=== PATIENT | female | born 1960 | race Caucasian/White ===

== ENCOUNTER 2020-04-11 08:39 | Outpatient (REF) | payer OTHER, SELFPAY ==
--- NOTE | 2020-04-11 08:45 | MM_ITS ---
EXAMINATION: MM SCREENING DIGITAL BREAST TOMOSYNTHESIS, BILATERAL CLINICAL INFORMATION: Screening. Asymptomatic. Family history of breast cancer (sister diagnosed at age of 51) The lifetime risk of breast cancer based on the Tyrer-Cuzick Model is 16.0%. COMPARISON: Mammography: 03/17/2019, 02/24/2018, 02/18/2017 TECHNIQUE: Digital breast tomosynthesis is performed in both the craniocaudal and mediolateral oblique views along with computer-aided detection (CAD). Synthesized 2D images are generated from the tomosynthesis. FINDINGS: The breasts are extremely dense, which lowers the sensitivity of mammography (ACR BI-RADS breast composition Category d). Right breast: A 1.5 cm oval well-circumscribed isodense mass in the lower inner quadrant, 3 to 5 cm from nipple is stable since previous study of 2017. No suspicious calcifications are noted. A small partially seen asymmetry along the chest wall in the medial posterior right breast seen only on the craniocaudal view most probably represents a sternalis muscle however further evaluation is recommended at this time. Left breast: No suspicious masses, calcifications, architectural distortion or other abnormalities are seen. No significant interval change is noted compared to last study. MM/MM tomosynthesis screening BI IMPRESSION: 1. Small asymmetry along the chest wall in the posterior medial right breast. 2. No mammographic evidence of malignancy in the left breast. ASSESSMENT: BI-RADS 0: Incomplete - Need Additional Imaging Evaluation RECOMMENDATION: 1. Additional views of the right breast. Recommend right exaggerated craniocaudal medial view utilizing tomosynthesis technique. Additional mammographic views may be acquired as warranted. 2. Targeted ultrasound if warranted after review of the additional views. 3. Radiology department staff will contact the patient for additional imaging. This patient's information was entered into a reminder system with a target due date for their next mammogram.
== END 2020-04-11 08:40 | disposition home or self-care (01) ==
LOC: HO.MAMMO 08:39
PROVIDERS: PCP Internal Medicine; Visit Provider Internal Medicine
DX: Z12.31 Encounter for screening mammogram for malignant neoplasm of breast (principal)
CPT/HCPCS: 77063; 77067

== ENCOUNTER 2020-04-22 14:54 | Outpatient (REF) | payer OTHER, SELFPAY ==
--- NOTE | 2020-04-22 | MM_ITS ---
EXAMINATION: MM DIAGNOSTIC DIGITAL BREAST TOMOSYNTHESIS, RIGHT CLINICAL INFORMATION: Density deep medial aspect of the right breast on craniocaudal view. The lifetime risk of breast cancer based on the Tyrer-Cuzick Model is 16.0%. COMPARISON: Mammography: 04/11/2020 and studies dating back to 02/18/2017. TECHNIQUE: Digital breast tomosynthesis is performed in spot compression exaggerated craniocaudal views along with computer-aided detection (CAD). Synthesized 2D images are generated from the tomosynthesis. FINDINGS: The breasts are extremely dense, which lowers the sensitivity of mammography (ACR BI-RADS breast composition Category d). There is no persistence of the density adjacent to the chest wall medial craniocaudal view which appears to have been related to sternalis muscle. Results are provided to the patient at time of visit by the technologist. MM/MM tomosynthesis diagnostic RT IMPRESSION: No specific mammographic evidence to suggest malignancy. ASSESSMENT: BI-RADS 1: Negative. RECOMMENDATION: Routine annual mammography screening due in 12 months. This patient's information was entered into a reminder system with a target due date for their next mammogram.
== END 2020-04-22 14:55 | disposition home or self-care (01) ==
LOC: HO.MAMMO 14:54
PROVIDERS: PCP Internal Medicine; Visit Provider Internal Medicine
DX: R92.8 Other abnormal and inconclusive findings on diagnostic imaging of breast (principal)
CPT/HCPCS: 77061; 77065

== ENCOUNTER 2020-05-31 12:50 | Outpatient (REF) | payer OTHER, SELFPAY | END 2020-05-31 12:51 | disposition home or self-care (01) | LOC: HO.WFDLDS 12:50 | PROVIDERS: Visit Provider Internal Medicine | DX: Z20.828 Contact with and (suspected) exposure to other viral communicable diseases (principal) | CPT/HCPCS: C9803; U0003 ==

== ENCOUNTER 2021-05-09 08:01 | Outpatient (REF) | payer OTHER, SELFPAY ==
--- NOTE | ~2021-05-09 | MM_ITS ---
EXAMINATION: MM SCREENING DIGITAL BREAST TOMOSYNTHESIS, BILATERAL CLINICAL INFORMATION: Screening. Asymptomatic. The lifetime risk of breast cancer based on the Tyrer-Cuzick Model is 15.9%. COMPARISON: Mammography: April 22, 2020 and studies dating back to February 18, 2017 TECHNIQUE: Digital breast tomosynthesis is performed in both the craniocaudal and mediolateral oblique views along with computer-aided detection (CAD). Synthesized 2D images are generated from the tomosynthesis. FINDINGS: The breasts are heterogeneously dense, which may obscure small masses (ACR BI-RADS breast composition Category c). There are no significant masses, abnormal calcifications, or other abnormalities. Stable circumscribed density about the deep inferior medial aspect of the right breast again seen. MM/MM tomosynthesis screening BI IMPRESSION: There are no significant changes from prior study. ASSESSMENT: BI-RADS 2: Benign RECOMMENDATION: Routine annual mammography screening. This patient's information was entered into a reminder system with a target due date for their next mammogram.
== END 2021-05-09 08:02 | disposition home or self-care (01) ==
LOC: HO.MAMMO 08:01
PROVIDERS: PCP Internal Medicine; Visit Provider Internal Medicine
DX: Z12.31 Encounter for screening mammogram for malignant neoplasm of breast (principal)
CPT/HCPCS: 77063; 77067

== ENCOUNTER 2022-05-16 09:58 | Outpatient (REF) | payer OTHER, SELFPAY ==
--- NOTE | ~2022-05-16 | MM_ITS ---
EXAMINATION: MM SCREENING DIGITAL BREAST TOMOSYNTHESIS, BILATERAL CLINICAL INFORMATION: Screening. Asymptomatic. Family history breast cancer, sister. The lifetime risk of breast cancer based on the Tyrer-Cuzick Model is 15%. COMPARISON: Mammography: 05/09/2021, 04/22/2020, 04/11/2020, 03/17/2019 TECHNIQUE: Digital breast tomosynthesis is performed in both the craniocaudal and mediolateral oblique views along with computer-aided detection (CAD). Synthesized 2D images are generated from the tomosynthesis. FINDINGS: The breasts are heterogeneously dense, which may obscure small masses (ACR BI-RADS breast composition Category c). There is a stable 1.5 cm circumscribed equal attenuation mass with smooth margins posterior central 4:00 position right breast similar to prior exams. Neither breast shows interval mass or developing density or architectural abnormality. No abnormal calcifications. The axilla and skin contours are unremarkable. No significant changes. MM/MM tomosynthesis screening BI IMPRESSION: No significant changes from prior exams. ASSESSMENT: BI-RADS 2: Benign RECOMMENDATION: Routine annual mammography screening. This patient's information was entered into a reminder system with a target due date for their next mammogram.
== END 2022-05-16 09:59 | disposition home or self-care (01) ==
LOC: HO.MAMMO 09:58
PROVIDERS: PCP Internal Medicine; Visit Provider Internal Medicine
DX: Z12.31 Encounter for screening mammogram for malignant neoplasm of breast (principal)
CPT/HCPCS: 77063; 77067

== ENCOUNTER 2023-05-22 09:44 | Outpatient (REF) | payer OTHER, SELFPAY ==
--- NOTE | ~2023-05-22 | MM_ITS ---
EXAMINATION: MM SCREENING DIGITAL BREAST TOMOSYNTHESIS, BILATERAL CLINICAL INFORMATION: Screening. Asymptomatic. COMPARISON: Mammography: This study is compared with prior exams dating back to 2018. TECHNIQUE: Digital breast tomosynthesis is performed in both the craniocaudal and mediolateral oblique views along with computer-aided detection (CAD). Synthesized 2D images are generated from the tomosynthesis. FINDINGS: The breasts are heterogeneously dense, which may obscure small masses (ACR BI-RADS breast composition Category c). There are no significant masses, abnormal calcifications, or other abnormalities. There has been no interval change of a long-standing well-circumscribed, benign focal asymmetry of the lower inner quadrant of the right breast. MM/MM tomosynthesis screening BI IMPRESSION: No mammographic evidence of malignancy. ASSESSMENT: BI-RADS BI-RADS 2 - Benign Findings RECOMMENDATION: Routine annual mammography screening. 1 year F/U This examination should not preclude the clinical evaluation of a suspicious palpable abnormality. This patient's information was entered into a reminder system with a target due date for their next mammogram.
== END 2023-05-22 09:45 | disposition home or self-care (01) ==
LOC: HO.MAMMO 09:44
PROVIDERS: PCP Internal Medicine; Visit Provider Internal Medicine
DX: Z12.31 Encounter for screening mammogram for malignant neoplasm of breast (principal)
CPT/HCPCS: 77063; 77067

== ENCOUNTER → 2023-05-22 10:00 | Outpatient (BNV) | payer OTHER, SELFPAY | PROVIDERS: PCP Internal Medicine; Visit Provider Radiology Diagnostic Radiology | DX: Z12.31 Encounter for screening mammogram for malignant neoplasm of breast (principal) | CPT/HCPCS: 77063; 77067 ==

== ENCOUNTER 2025-03-11 10:20 | Outpatient (REF) | payer MEDICARE, SELFPAY ==
--- OUTSIDE RECORDS SUMMARY | 2022-01-19 20:00 | XMS_ITS | Continuity of Care Document ---
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 Name Role Phone Brigitte Abernathy Unavailable Unavailable Allergies, Adverse Reactions, Alerts Substance Reaction Status Criticality gluten Active No Information adhesive tape Active No Information Penicillins Active No Information Medications Medication Instructions Dosage Effective Dates (start - stop) Status Comments olmesartan 20 mg tablet take 0.5 tablet by oral route every day 10 MG - Active rosuvastatin 40 mg tablet take 1 tablet by oral route every day 40 MG - Active dose increase 03/09/21 Claritin 10 mg tablet take 1 tablet by oral route every day 10 MG - Active pilocarpine 5 mg tablet take 1 tablet by oral route 4 times every day 5 MG - Active folic acid 1 mg tablet take 1 tablet by oral route every day 1 MG - Active acamprosate 333 mg tablet,delayed release take 2 tablet by oral route 3 times every day 666 MG - Active Synthroid 150 mcg tablet take 1 tablet by oral route every Saturday through Saturday - Active buspirone 15 mg tablet take 1 tablet by oral route 3 times every day 15 MG - Active sertraline 100 mg tablet take 1.5 tablet by oral route every day - Active Synthroid 150 mcg tablet take 2 on Saturday and Saturday - Active Calcium 500 500 mg calcium (1,250 mg) tablet take 1 tablet by oral route every day 1 tablet - Active COQ-10 (unknown strength) Not Available - Active Vitamin B-12 100 mcg tablet take tablet by oral route every day tablet - Active Vitamin D3 50 mcg (2,000 unit) capsule take 1 capsule by oral route every day 1 capsule - Active propranolol 40 mg tablet take 1 tablet by oral route 2 times every day 40 MG - Active primidone 250 mg tablet take 50 mg 2 tablet by oral route every morning & 250 mg every bedtime 500 MG - Active meloxicam 15 mg tablet take 1 tablet by oral route every day 15 MG - Active hydroxychloroquine 200 mg tablet take 1 tablet by oral route 2 times every day 200 MG - Active Flovent Diskus 100 mcg/actuation powder for inhalation inhale 1 puff by inhalation route 2 times every day as needed - Active Multi-Day tablet take 1 tablet by oral route every day 1 tablet - Active Procedures Procedure Date NO SHOW ELECTROCARDIOGRAM, COMPLETE OFFICE/OUTPATIENT VISIT, EST OFFICE/OUTPATIENT VISIT, EST ELECTROCARDIOGRAM, COMPLETE OFFICE/OUTPATIENT VISIT, EST ELECTROCARDIOGRAM, COMPLETE OFFICE/OUTPATIENT VISIT, EST ELECTROCARDIOGRAM, COMPLETE OFFICE/OUTPATIENT VISIT, EST OFFICE/OUTPATIENT VISIT, EST ECHO 2D W/DOPPLER MPI SPECT MULTI STUDIES CARDIOVASCULAR STRESS TEST CARDIOVASCULAR STRESS TEST OFFICE CONSULTATION ELECTROCARDIOGRAM, COMPLETE CT CORONARY CALCIUM SCORE MPI SPECT MULTI STUDIES CARDIOVASCULAR STRESS TEST CARDIOVASCULAR STRESS TEST Advance Directives Directive Yes / No Effective Date File Name No Information Encounters Encounter Description Practice Location Reason(s) For Visit Diagnoses Date Provider Providers Copied on Encounter [facility] , [facility], [address] [place] [address], [id number] , tel:[phone] Main Office No Information 2 Mikhail Briggs. [address] [place] [address], [id number] , [place]. tel:[phone] [facility] , [facility], [address] [place] [address], [id number] , tel:[phone] CTS Office No Information 2 Christian Aparicio. [address] [place] [address], [id number] , . tel: [phone] OFFICE/OUTPAT IENT VISIT, [facility], [address] [place] [address], [id number] , tel: [phone] Main Office Follow up (chief complaint) Athscl heart disease of [place] coronary artery w/o ang pctrsEssential (primary) hypertensionMixed hyperlipidemia Feb-3 1 Mikhail Briggs. [address] [place] [address], [id number] , [place]. tel: [phone] Referring Provider: Markus Collado, [address] [place] [address], [id number] . tel:[phone] OFFICE/OUTPAT IENT VISIT, [facility], [address] [place] [address], [id number] , tel: [phone] Main Office Follow up (chief complaint) Atherosclerotic heart disease of [place] coronary artery without angina pectorisEssential (primary) hypertensionPure hypercholesterolemia , unspecified 1 Christian Aparicio. [address] [place] [address], [id number] , [place]. tel: [phone] Referring Provider: Brigitte Elizondo, [address] [place] [address], [id number] . tel:[phone] OFFICE/OUTPAT IENT VISIT, [facility], [address] [place] [address], [id number] , [place] tel: [phone] Main Office Follow up (chief complaint) Atherosclerotic heart disease of [place] coronary artery without angina pectorisEssential (primary) hypertensionPure hypercholesterolemia , unspecifiedDiscoid lupus erythematosusRheumat oid arthritis, unspecified 0 Mikhail Briggs. [address] [place] [address] [place], [place], [id number] , [place]. tel: [phone] Referring Provider: Markus Collado, [address] [place] [address], [address] [place] [address] . tel:[phone] OFFICE/OUTPAT IENT VISIT, [facility], [address] [place] [address], [address] [place] [address] , tel: [phone] Main Office Follow up (chief complaint) Athscl heart disease of [place] coronary artery w/o ang pctrsEssential (primary) hypertensionDiscoid lupus erythematosusRheumat oid arthritis, unspecified 7 Thel Markus. [address] [place] [address], [address] [place] [address] , [place]. tel: [phone] Referring Provider: Markus Collado, [address] [place] [address], [address] [place] [address] . tel:[phone] OFFICE/OUTPAT IENT VISIT, [facility], [address] [place] [address], [address] [place] [address] , tel: [phone] Main Office 1 Year (chief complaint) Athscl heart disease of [place] coronary artery w/o ang pctrs 6 Thel Markus. [address] [place] [address], [address] [place] [address] , . tel: [phone] Referring Provider: Markus Collado, [address] [place] [address], [address] [place] [address] . tel:[phone] [facility], [address] [place] [address], [address] [place] [address] , tel: [phone] Main Office No Information 6 Thel Markus. [address] [place] [address], [address] [place] [address] , [place]. tel: [phone] OFFICE/OUTPAT IENT VISIT, [facility], [address] [place] [address], [address] [place] [address] , tel: [phone] Main Office No Information 201 5 Thel Markus. [address] [place] [address], [address] [place] [address] , [place]. tel: [phone] Referring Provider: Markus Collado, [address] [place] [address], [id number] . tel:[phone] [facility] , [facility], [address] [place] [address], [id number] , tel: [phone] [facility] OP No Information 0- 5 Golden Kessler. [address] [place] [address], [id number] , [place]. tel: [phone] Referring Provider: Markus Collado, [address] [place] [address], [id number] . tel:[phone] [facility] , [facility], [address] [place] [address], [id number] , tel: [phone] [facility] OP No Information 0 5 Dionisio Navarrete. [address] [place] [address], [id number] , [place]. tel: [phone] Referring Provider: Markus Collado, [address] [place] [address], [id number] . tel:[phone] OFFICE CONSULTATION [facility] , [facility], [address] [place] [address], [id number] , tel: [phone] Main Office No Information 5 Christian Markus. [address] [place] [address], [id number] , [place]. tel: [phone] Referring Provider: Renato Gaspar, [address] [facility] [address], [place], [address]. tel:[phone] [facility] , [facility], [address] [place] [address], [id number] , [place] tel: [phone] [facility] OP No Information 5 5 Reg Mcintosh. [address] [place] [address], [id number] , [place]. tel: [phone] Referring Provider: Renato Gaspar, [address] [facility] [address], [place], [address]. tel:[phone] [facility], [address] [place] [address], [id number] , tel: [phone] [facility] OP No Information 1 Christian Solano. [address] [place] [address], [id number] , . tel: [phone] Referring Provider: Deb Maguire, [address] [place] [address], [address]. tel:[phone] Family History Family Member Type Diagnosis Age At Onset Father Problem (finding) raised blood lipids Father Problem (finding) Cardiovascular disease Payers Payer name Insurance type Covered alliance party ID Authoriza tion(s) No Information Social History Type Description Quantity Date Captured Comments Sex Female Smoking Status No Information Chief Complaint And Reason For Visit No Information Reason For Referral Reason For Referral No Information Plan Of Treatment Date Type Action Status Goal Lifestyle education regardin g diet completed Goal Lifestyle education regardin g diet completed Goal Lifestyle education regardin g diet completed Goal Lifestyle education regardin g diet completed Future Order: Lab Order Lipid Pa carmelo ([id number]), Scheduled for: , Scheduled for: Sent Future Order: Lab Order ALT (SGP T) ([id number]), Scheduled for: , Scheduled for: Sent Future Order: Lab Order AST (SGO T) ([id number]), Scheduled for: , Scheduled for: Sent Future Order: Lab Order BMP ([id number]), S ent on: Sent History Of Present Illness Encounter Date Complaint History Of Prese nt Illness Follow up Ms. Gregory is a 61 -year-old patient of Dr. Cooley with a history of CAD, HTN, and HLD presenting for a 6 month follow-up. Her lipitor was increased to 40mg nightly following her last labs and she indicates she is tolerating well. She has no complaints of chest pain, shortness of breath, orthopnea, palpitations, syncope or presyncope, stroke or strokelike symptoms. Follow up The patient is edwige ibrahim. She really has no complaints at all. She denies chest discomfort, orthopnea, PND, palpitations, stroke, strokelike symptoms, and claudication. She has had no problems with medications. Follow up Ms. Gregory is a 59 -year-old patient of Dr Cooley with a history of CAD, HTN, HLD, discoid lupus and RA presenting for an overdue 1 year follow-up. She reports her blood pressure has been more elevated in recent months which led her to resume Propranolol 40mg bid that was previously prescribed by another provider. She reports she does not routinely check at home, but at other appointments it has continued to be elevated. She has no complaints of chest pain, shortness of breath, orthopnea, syncope, stroke or stroke-like symptoms. She reports she had been having some palpitations, but since starting the Propranolol a few weeks ago these have subsided. Follow up The patient has been doing well. She has no cardiac complaints. She denies chest discomfort, orthopnea, PND, palpitations, stroke, strokelike symptoms, and claudication. She has had no problems with medications. 1 Year The patient is edwige prince. She has no complaints at all.She denies chest discomfort, orthopnea, PND, palpitations, stroke, strokelike symptoms, and claudication. She has had no problems with medications. Functional Status Date Functional Assessmen t No Information Instructions Date Instruction Joseph hernandez Lifestyle education regarding di et Related to Dietary counseling and surveillance Lifestyle education regarding di et Related to Dietary counseling and surveillance Lifestyle education regarding di et Related to Dietary counseling and surveillance Lifestyle education regarding di et Related to Dietary counseling and surveillance Assessments Type Assessment Date No Information Patient Care Teams Name Effective Dates (start - stop) Status Members No Information
[2025-03-11 14:41] LABS: Hematocrit 44.4 % (37.0-47.0); Hemoglobin 15.0 g/dl (12.0-16.0); Mean Corpuscular HGB Conc 33.8 g/dl (31.0-35.0); Mean Corpuscular Hemoglobin 30.0 pg (27.0-33.0); Mean Corpuscular Volume 88.8 fL (80.0-98.0); NRBC Abs Auto 0.000 X10*3/uL (0.0-0.012); NRBC Pct Auto 0.0 /100WBC (0.0-0.2); Platelet Count 233 X10*3/uL (160-400); Red Blood Count 5.00 X10*6/uL (4.20-5.50); White Blood Count 5.0 X10*3/uL (4.8-10.8)
[2025-03-11 15:20] LABS: Alanine Aminotransferase 15 U/L (0-31); Albumin Level 4.6 g/dL (3.5-5.0); Alkaline Phosphatase 50 U/L (39-117); Anion Gap 10 (12-20); Aspartate Amino Transferase 17 U/L (5-31); Blood Urea Nitrogen 13 mg/dL (9-16); Calcium 9.3 mg/dL (8.4-10.2); Carbon Dioxide 30 mmol/L (22-29); Chloride 105 mmol/L (96-108); Cholesterol 226 mg/dL (<200); Estimated Glomerular Filt Rate > 60; HDL Cholesterol 64 mg/dL (>40); Potassium 4.1 mmol/L (3.3-5.1); Sodium 141 mmol/L (135-145); Total Protein 7.3 g/dL (6.5-8.0); Triglycerides 81 mg/dL (<150)
== END 2025-03-11 10:21 | disposition home or self-care (01) ==
LOC: HO.WFDLDS 10:20
PROVIDERS: PCP Physician Assistant Medical; Visit Provider Physician Assistant Medical
DX: Z00.00 Encounter for general adult medical examination without abnormal findings (principal); E03.8 Other specified hypothyroidism; E78.5 Hyperlipidemia, unspecified; Z79.890 Hormone replacement therapy
CPT/HCPCS: 36415; 80053; 80061; 84443; 85027; 96127; 99387

== ENCOUNTER 2025-03-11 10:20 | Outpatient (AMB) | payer MEDICARE, SELFPAY ==
--- NOTE | 2025-03-11 10:32 | A.OFFPC_ITS ---
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 Allergies No Known Allergies (No Known Allergies*) Allergy (Unverified 03/11/25 10:37) Tobacco use date assessed: 03/11/25 Dental Screening Dental Screen Date: 03/11/25 Did you have a dental visit in the last 12 months?: Yes Did you have a dental problem in the last 6 months where you did not have access to dental care?: No Was dental information given to patient?: Patient has dentist HPI HPI Comments History of Present Illness Details This is a 65-year-old female with a past medical history of hypothyroidism presenting to establish care. She would like a physical done today. She transferred from Dr. Josue Serra. Hypothyroidism treated with levothyroxine 50 mcg and 75 mcg, alternates doses every other day. She would like to simplify this if possible. She is due for lab work. No fatigue, weight change or other symptoms of thyroid disease. Mammogram is due in May. Her sister has a history of breast cancer. She has a dermatology exam with [facility] on 04/16/2025. She has a annual women's health exam was Priscilla Hodge on 03/17/2025. She had a bone density test done recently and expects to review the results at that time. Eye and dental exams are up-to-date. She had a colonoscopy in 2023 and was told to repeat this in 10 years. Patient received her influenza vaccine, tetanus vaccine and COVID-19 vaccine on 03/01/2025. She is up-to-date with shingles and pneumonia vaccine. She notes an ongoing issue with or itching in the back of her scalp associated with redness and sometimes a bumpy rash. She has used cortisone and other creams [id number] with a good effect, but she does question if she is not using them long enough. She does plan to bring this up with her gyroscopic instrument tester. We reviewed trying cortisone twice daily for 7-10 days per episode and then avoiding use for 3-4 weeks. We reviewed side effects of steroids. ROS: Constitutional: No unexplained weight loss, fever, chills, fatigue or night sweats. Eyes: No vision changes, blurry vision, double vision, eye pain, eye redness, eye discharge. ENT: No hearing loss, sneezing, congestion, runny nose or sore throat. Respiratory: No shortness of breath, cough or sputum production. Cardiovascular: No chest pain, chest pressure or chest discomfort. No palpitations or pedal edema. Gastrointestinal: No anorexia, nausea, vomiting or diarrhea. No abdominal pain or blood in stool. Genitourinary: No dysuria, hematuria, urinary frequency. Neurologic: No headache, dizziness, syncope, unilateral weakness, ataxia, numbness or tingling in the extremities. Musculoskeletal: No muscle pain, back pain, joint pain or swelling. Hematologic/Lymphatics: No bleeding or bruising. No painful lymph nodes. Skin: See HPI Endocrine: No cold or heat intolerance. No polyuria or polydipsia. Psychiatric: No depression or anxiety. No SI/HI. Physical exam: Constitutional: Alert, in no distress. Head: Normocephalic. Eyes: Pupils are equal, round and reactive to light. Extraocular muscles intact. Ear, Nose and Throat: Canals clear. TMs normal. Normal nasal mucosa. No nasal discharge. No oral lesions. Neck: Supple, Full range of motion. No lymphadenopathy. No palpable thyroid masses. Respiratory: Clear to auscultation. Cardiovascular: S1 S2 regular. No murmurs. No carotid bruits. Gastrointestinal: Abdomen soft, non-tender, non-distended. Normal bowel sounds. No palpable masses. Neurologic: No focal neurological deficits. Symmetric patellar reflexes. Moves all extremities spontaneously. Sensation intact bilaterally. Skin: There is mild erythema and a single small papule on the hairline at the back of the head. Musculoskeletal: No gross deformities. Normal range of motion. Extremities: Warm and well perfused. No clubbing, cyanosis or edema. Intact peripheral pulses bilaterally. Psychiatric: Normal mood and affect [facility] Medical History (Updated 03/11/25 @ 11:26 by DILEEP Black) Hypothyroidism Routine physical examination Thyroid disorder Surgical History (Updated 03/11/25 @ 10:46 by Thais Becker CMA) History of colonoscopy Social History (Updated 03/11/25 @ 10:42 by Thais Becker CMA) Housing: House Alcohol intake: current Patient Tobacco Use Status: Never used Tobacco e-Cigarette/Vaping Use: Never Used Second Hand Smoke Exposure: No service: No Current occupational status: retired Current occupational exposures/hazards: No Cognitive needs: No Hearing needs: No Vision needs: No Questionnaire PHQ-9 Over the last 2 weeks, how often have you been bothered by any of the following problems? 1. Little interest or pleasure in doing things: not at all 2. Feeling down, depressed, or hopeless: not at all 3. Trouble falling or staying asleep, or sleeping too much: not at all 4. Feeling tired or having little energy: not at all 5. Poor appetite or overeating: not at all 6. Feeling bad about yourself - or that you are a failure or have let yourself or your family down: not at all 7. Trouble concentrating on things, such as reading the newspaper or watching television: not at all 8. Moving or speaking so slowly that other people could have noticed. Or the opposite - being so fidgety or restless that you have been moving around a lot more than usual: not at all 9. Thoughts that you would be better off or of hurting yourself in some way: not at all Total score: 0 Depression Screening Interpretation: Negative Depression Screening Done: Yes 40525 - PHQ-9 Billing: Yes Source: Developed by Drs. Gonzalez Rico, Niharika Aceves, Thomas Arias and colleagues, with an educational adan from [employer]. Thrive Questionnaire Date Thrive assessed: 03/11/25 I am a: Patient What is your living situation today?: I have a steady place to live Within the past 12 months, did the food you bought not last and you didn't have the money to get more?: Never true Within the past 12 months, did you worry whether your food would run out before you got money to buy more?: Never true Do you have trouble paying for medicines?: No Do you have trouble getting transportation to medical appointments?: No Do you have trouble paying your heating and electricity bill?: No Do you have trouble taking care of your child, family member or friend?: No Do you have trouble with day-to-day activities such as bathing, preparing meals, shopping, managing finances, etc.?: No Are you currently unemployed and looking for a job?: No Are you interested in more education?: No Please select the resources that you would like help with: None Currently or been in a relationship where the following occur: No concerns reported THRIVE Score: 0 AUDIT C Alcohol Use Questionnaire (AUDIT-C) 1. How often do you have a drink containing alcohol?: 2-3 times a week 2. How many drinks containing alcohol do you have on a typical day when you are drinking?: 1 or 2 3. How often do you have six or more drinks on one occasion?: Never Total Score: 3 MAHI-7 AMB Questionnaire MAHI-7 Date MAHI - 7 assessed: 03/11/25 Feeling nervous, anxious, or on edge: 0 = Not at all Not being able to stop or control worryin = Not at all Worrying too much about different things: 0 = Not at all Trouble relaxin = Not at all Being so restless that it is hard to sit still: 0 = Not at all Becoming easily annoyed or irritable: 0 = Not at all Feeling afraid as if something awful might happen: 0 = Not at all Total MAHI-7 score (0-4 normal; 5-9 mild; 10-14 moderate; 15-21 severe): 0 Source: Developed by Drs. Gonzalez Rico, Niharika Aceves, Thomas Arias and colleagues, with an educational adan from [employer]. MAHI-7 Assessment Billing MAHI-7 Assessment Tool: MAHI-7 Assessment 64368 Physical exam (Primary Care) Vital Signs: Last Vital Signs Temp 97.9 F 03/11/25 10:42 Pulse 77 03/11/25 10:42 Resp 14 03/11/25 10:42 BP 106/80 03/11/25 10:42 Pulse Ox 98 03/11/25 10:42 Oxygen Delivery Method Room Air 03/11/25 10:42 BMI result Body Mass Index 25.1 Tobacco/Smoking Status: Tobacco use Status Tobacco use date assessed 03/11/25 03/11/25 10:46 Patient Tobacco Use Status Never used Tobacco 03/11/25 10:46 e-Cigarette/Vaping Use Never Used 03/11/25 10:46 PHQ-9: PHQ-9 Score PHQ-9: Total score 0 03/11/25 10:34 Depression Screening Interpretation: Negative Thrive Assessment: Date of Thrive Assessment Date Thrive assessed 03/11/25 03/11/25 10:34 Currently or been in a relationship where the following occur: No concerns reported Coding Level of Care Code New Pt Prev Care >65yr (69045) Diagnoses Routine physical examination Z00.00 Other specified hypothyroidism E03.8 Hypothyroidism type: other Additional Codes MAHI-7 Assessment Billing - MAHI-7 Assessment Tool: MAHI-7 Assessment 11650 ([id number]) PHQ-9 - 65601 - PHQ-9 Billing: Yes ([id number]) Assessment & Plan Assessment & Plan (1) Routine physical examination: Code(s): Z00.00 - Encounter for general adult medical examination without abnormal findings Category: Medical Plan: Patient is seen today for a routine physical. 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 - Screening for colon cancer - Blood pressure screening - Cholesterol screening - Osteoporosis prevention including calcium/vitamin D intake, weight bearing exercise & smoking cessation - Nutritional and exercise counseling - Counseling of injury prevention including fire prevention, smoke alarms and seat belt usage - Screening for depression - Education about skin cancer - Recommendations about immunizations - Recommendation of an eye exam - Screening for substance abuse (2) Hypothyroidism: Code(s): E03.9 - Hypothyroidism, unspecified Category: Medical Qualifiers: Hypothyroidism type: other Qualified Code(s): E03.8 - Other specified hypothyroidism Plan: Check TSH. We will try to simplify her medications to 1 dosage based on results. Plan Schedule physical exam in 1 year. Orders: Orders Lipid Panel Today E03.9 - Hypothyroidism, unspecified, E78.5 - Hyperlipidemia, unspecified, Z00.00 - Encounter for general adult medical examination without abnormal findings Complete Blood Count no Diff Today E03.9 - Hypothyroidism, unspecified, Z00.00 - Encounter for general adult medical examination without abnormal findings TSH reflex Free T4 Today E03.9 - Hypothyroidism, unspecified Comprehensive Met. Panel Today E03.9 - Hypothyroidism, unspecified, Z00.00 - Encounter for general adult medical examination without abnormal findings Medications: New levothyroxine (Synthroid) 50 mcg PO .every other day 45 tabs 3RF levothyroxine (Synthroid) 75 mcg PO .every other day 45 tabs 3RF
[2025-03-11 10:42] VITALS: BP 106/80; PULSE 77; RESP 14; TEMP 36.6; O2SAT 98; BMI 25.1
== END 2025-03-11 11:14 | disposition home or self-care (01) ==
LOC: HO.HMCFM 10:20
PROVIDERS: PCP Physician Assistant Medical; Visit Provider Physician Assistant Medical
DX: Z00.00 Encounter for general adult medical examination without abnormal findings (principal); E03.8 Other specified hypothyroidism

== ENCOUNTER 2025-06-09 10:01 | Outpatient (REF) | payer MEDICARE, SELFPAY ==
[2025-06-09 12:48] LABS: Parathyroid Hormone Intact 40.8 pg/mL (8.7-77.1)
[2025-06-09 17:33] LABS: Anion Gap 11 (12-20); Blood Urea Nitrogen 14 mg/dL (9-16); Calcium 9.6 mg/dL (8.4-10.2); Carbon Dioxide 28 mmol/L (22-29); Chloride 107 mmol/L (96-108); Estimated Glomerular Filt Rate > 60; Potassium 4.0 mmol/L (3.3-5.1); Sodium 142 mmol/L (135-145)
== END 2025-06-09 10:02 | disposition home or self-care (01) ==
LOC: HO.WFDLDS 10:01
PROVIDERS: Visit Provider Physician Assistant Medical
DX: Z13.29 Encounter for screening for other suspected endocrine disorder (principal); M81.0 Age-related osteoporosis without current pathological fracture
CPT/HCPCS: 36415; 80048; 82306; 83970; 84443